=== PATIENT | female | born 1990 | race African-American/Black ===

== ENCOUNTER 2018-10-23 13:32 | Emergency (ER) | payer MEDICAID ==
[~2018-10-23] VITALS: Ht 172.7 cm; Wt 90.7 kg
[2018-10-23 14:08] LABS: BILIRUBIN,URINE SMALL (NEG); CLARITY,URINE CLEAR; COLOR,URINE AMBER; NITRITE,URINE NEGATIVE (NEG); PROTEIN,URINE NEGATIVE (NEG-TRACE)
[2018-10-23 14:13] LABS: BACTERIA,URINE FEW /HPF (0-FEW); RBC,URINE 0 /HPF (0-2); SQUAMOUS EPITHELIAL CELL,UR MANY /LPF; WBC,URINE OCC /HPF (0-4)
--- NOTE | 2018-10-23 14:24 | PHYS DOC ---
Past Medical History Past Surgical History: No Surgical History Alcohol Use: None Drug Use: None Adult General Chief Complaint Chief Complaint: ABDOMINAL PAIN HPI HPI 28-year-old female presents to ER with complaints of GI issues which started yesterday. Patient reports she started having N/V/D episodes yest. with mid abd pain. Patient states symptoms have been waxing and waning. Patient states she is attempted to drink and eat however every time she does she has increased nausea and vomiting episodes. Patient denies fever, chest pain or palpitations, urinary symptoms, or vaginal symptoms. LMP was last week. Pt denies any exposure to others with similar illness. Patient denies any recent travel. Review of Systems Review of Systems Constitutional: Denies fever or chills [] Eyes: Denies change in visual acuity, redness, or eye pain [] HENT: Denies nasal congestion or sore throat [] Respiratory: Denies cough or shortness of breath [] Cardiovascular: No additional information not addressed in HPI [] GI: Denies bloody stools. Reports mid abd pain with N/V/D : Denies dysuria or hematuria. Denies vaginal sxs Musculoskeletal: Denies back pain or joint pain [] Integument: Denies rash or skin lesions [] Neurologic: Denies headache, focal weakness or sensory changes. Denies dizziness Endocrine: Denies polyuria or polydipsia [] All other systems were reviewed and found to be within normal limits, except as documented in this note. Current Medications Current Medications Current Medications Medications (Trade) Dose Ordered Sig/Andrew Start Time Stop Time Status Last Admin Dose Admin Dicyclomine HCl (Bentyl) 20 mg 1X ONCE 10/23/18 15:15 10/23/18 15:16 DC 10/23/18 15:22 20 MG Ondansetron HCl (Zofran) 4 mg 1X ONCE 10/23/18 14:30 10/23/18 14:31 DC 10/23/18 14:36 4 MG Sodium Chloride 1,000 ml @ 1,000 mls/hr 1X ONCE 10/23/18 14:30 10/23/18 15:29 DC 10/23/18 14:30 1,000 MLS/HR Allergies Allergies Allergies Coded Allergies Type Severity Reaction Last Updated Verified No Known Drug Allergies 10/23/18 No Physical Exam Physical Exam Constitutional: Well developed, well nourished, no acute distress, non-toxic appearance. [] HENT: Normocephalic, atraumatic, mucous membranes pink/dry, nose normal. [] Eyes: Pupils equal, conjunctiva normal, no discharge. [] Neck: Normal range of motion, supple, no stridor. [] Cardiovascular: Heart rate regular rhythm, no murmur [] Lungs & Thorax: Bilateral breath sounds clear to auscultation- resp. equal/nonlabored Abdomen: Bowel sounds normal, soft-no distention or rigidity, diffuse tenderness across mid abdomen with no focal area or rebound tenderness, no masses, no pulsatile masses. [] Skin: Warm, dry, no erythema, no rash. [] Back: No tenderness, no CVA tenderness. [] Extremities: No tenderness, no cyanosis, no clubbing, ROM intact, no edema. [] Neurologic: Alert and oriented X 3, normal motor function, normal sensory function, no focal deficits noted. [] Psychologic: Affect normal, judgement normal, mood normal. [] Current Patient Data Vital Signs Vital Signs Date Time Temp Pulse Resp B/P (MAP) Pulse Ox O2 Delivery O2 Flow Rate FiO2 10/23/18 15:00 77 16 118/77 (91) 100 Room Air 10/23/18 13:50 98.4 98.4 Lab Values Laboratory Tests Test 10/23/18 13:40 10/23/18 13:46 10/23/18 14:10 Urine Collection Type Unknown Urine Color [place] Urine Clarity Clear Urine pH 6.0 Urine Specific [place] >=1.030 Urine Protein Negative mg/dL (NEG-TRACE) Urine Glucose (UA) Negative mg/dL (NEG) Urine Ketones (Stick) Trace mg/dL (NEG) Urine Blood Negative (NEG) Urine Nitrite Negative (NEG) Urine Bilirubin Small (NEG) Urine Urobilinogen Dipstick 4.0 mg/dL (0.2 mg/dL) Urine Leukocyte Esterase Trace (NEG) Urine RBC 0 /HPF (0-2) Urine WBC Occ /HPF (0-4) Urine Squamous Epithelial Cells Many /LPF Urine Bacteria Few /HPF (0-FEW) Urine Mucus Mod /LPF POC Urine HCG, Qualitative Hcg negative (Negative) White Blood Count 5.8 x10^3/uL (4.0-11.0) Red Blood Count 4.25 x10^6/uL (3.50-5.40) Hemoglobin 12.9 g/dL (12.0-15.5) Hematocrit 38.9 % (36.0-47.0) Mean Corpuscular Volume 92 fL (79-100) Mean Corpuscular Hemoglobin 30 pg (25-35) Mean Corpuscular Hemoglobin Concent 33 g/dL (31-37) Red Cell Distribution Width 13.7 % (11.5-14.5) Platelet Count 249 x10^3/uL (140-400) Neutrophils (%) (Auto) 32 % (31-73) Lymphocytes (%) (Auto) 54 % (24-48) H Monocytes (%) (Auto) 12 % (0-9) H Eosinophils (%) (Auto) 2 % (0-3) Basophils (%) (Auto) 1 % (0-3) Neutrophils # (Auto) 1.9 x10^3uL (1.8-7.7) Lymphocytes # (Auto) 3.1 x10^3/uL (1.0-4.8) Monocytes # (Auto) 0.7 x10^3/uL (0.0-1.1) Eosinophils # (Auto) 0.1 x10^3/uL (0.0-0.7) Basophils # (Auto) 0.0 x10^3/uL (0.0-0.2) Sodium Level 138 mmol/L (136-145) Potassium Level 3.4 mmol/L (3.5-5.1) L Chloride Level 102 mmol/L (98-107) Carbon Dioxide Level 25 mmol/L (21-32) Anion Gap 11 (6-14) Blood Urea Nitrogen 8 mg/dL (7-20) Creatinine 0.8 mg/dL (0.6-1.0) Estimated GFR (Cockcroft-Gault) 84.8 BUN/Creatinine Ratio 10 (6-20) Glucose Level 96 mg/dL (70-99) Calcium Level 9.1 mg/dL (8.5-10.1) Total Bilirubin 0.3 mg/dL (0.2-1.0) Aspartate Amino Transferase (AST) 20 U/L (15-37) Alanine Aminotransferase (ALT) 28 U/L (14-59) Alkaline Phosphatase 92 U/L (46-116) Total Protein 8.0 g/dL (6.4-8.2) Albumin 3.7 g/dL (3.4-5.0) Albumin/Globulin Ratio 0.9 (1.0-1.7) L Lipase 171 U/L (73-393) Laboratory Tests 10/23/18 14:10 Laboratory Tests 10/23/18 14:10 Microbiology 10/23/18 Urine Culture - Final, Complete 10/23/18 Urine Culture Result 1 (SHAWN) - Final, Complete EKG EKG [] Radiology/Procedures Radiology/Procedures [] Course & Med Decision Making Course & Med Decision Making Pertinent Labs reviewed. (See chart for details) 1505: Pt was evaluated in the ER for GI issues. Patient had labs obtained- results were discussed with pt. CBC unremarkable- K+ 3.4; UA with trace ketones no UTI and neg. UCG. Pt has had no vomiting or diarrhea episodes while in the ER. Patient received IV fluids and Zofran. Patient states she is feeling hungry and so crackers and ice water was provided. Patient will receive IM dicyclomine and be provided with prescriptions for ODT Zofran and dicyclomine with discharge paperwork. At this time patient is in no visible distress. Discussed plans for home discharge with patient follow-up with her primary care physician if symptoms persist or with concerns. Education provided on signs and symptoms to return to ER for and d/c instructions were discussed. Dragon Disclaimer Dragon Disclaimer This electronic medical record was generated, in whole or in part, using a voice recognition dictation system. Departure Departure Impression: Primary Impression: Abdominal pain Additional Impression: Nausea vomiting and diarrhea Disposition: 01 HOME, SELF-CARE Condition: STABLE Patient Instructions: Abdominal Pain (Nonspecific), Diarrhea, Nausea and Vomiting Additional Instructions: Drink plenty of fluids and slowly advance her diet as tolerated. If symptoms persist follow-up with your primary care physician for reevaluation and further care. Scripts Dicyclomine Hcl (DICYCLOMINE HCL) 10 Mg Capsule 1 CAP PO PRN Q6HRS PRN for PAIN, #10 CAP 0 Refills Prov: GRAEME LIMON COST ESTIMATING CLERK 10/23/18 Ondansetron (ONDANSETRON ODT) 4 Mg Tab.rapdis 1 TAB PO PRN Q6-8HRS PRN for NAUSEA, #8 TAB 0 Refills Prov: GRAEME LIMON APRN 10/23/18 Problem Qualifiers GRAEME LIMON APRN October 23, 2018 14:24
[2018-10-23 14:26] LABS: BASO % 1 % (0-3); EOS # 0.1 x10^3/uL (0.0-0.7); EOS % 2 % (0-3); HEMATOCRIT 38.9 % (36.0-47.0); HEMOGLOBIN 12.9 g/dL (12.0-15.5); LYMPH # 3.1 x10^3/uL (1.0-4.8); LYMPH % 54 % (24-48); MEAN CORPUSCULAR HEMOGLOBIN 30 pg (25-35); MEAN CORPUSCULAR HGB CONC 33 g/dL (31-37); MEAN CORPUSCULAR VOLUME 92 fL (79-100); MONO # 0.7 x10^3/uL (0.0-1.1); MONO % 12 % (0-9); NEUT # 1.9 x10^3uL (1.8-7.7); NEUT % 32 % (31-73); PLATELET COUNT 249 x10^3/uL (140-400); RED BLOOD COUNT 4.25 x10^6/uL (3.50-5.40); RED CELL DISTRIBUTION WIDTH 13.7 % (11.5-14.5); WHITE BLOOD COUNT 5.8 x10^3/uL (4.0-11.0)
[2018-10-23] MEDS ORDERED: IV NORMAL SALINE 1000ML BAG 1,000 ML IV ONE (14:30)
[2018-10-23] MEDS ORDERED: ONDANSETRON PF 4 MG/2 ML VIAL. IV ONE (14:30)
[2018-10-23 14:33] LABS: CALCIUM 9.1 mg/dL (8.5-10.1); CREATININE 0.8 mg/dL (0.6-1.0); GFR 84.8; POTASSIUM 3.4 mmol/L (3.5-5.1)
[2018-10-23 14:39] LABS: ALBUMIN 3.7 g/dL (3.4-5.0); ALBUMIN/GLOBULIN RATIO 0.9 (1.0-1.7); TOTAL BILIRUBIN 0.3 mg/dL (0.2-1.0)
[2018-10-23 15:00] VITALS: BP 118/77
[2018-10-23] MEDS ORDERED: DICYCLOMINE 20 MG/2 ML AMPUL. IM ONE (15:15)
[2018-10-23] MEDS ORDERED: DICY10CA3 PO (15:20)
[2018-10-23] MEDS ORDERED: ONDA4TAB12 PO (15:20)
== END 2018-10-23 15:42 | disposition home or self-care (01) ==
LOC: ER 13:32
DX: R11.2 Nausea with vomiting, unspecified (principal); R19.7 Diarrhea, unspecified; R10.84 Generalized abdominal pain
CPT/HCPCS: 36415; 80053; 81001; 81025; 83690; 85025; 87086; 96361; 96372; 96374; 99284; J0500; J2405; J7030

== ENCOUNTER 2020-05-28 15:19 | Emergency (ER) | payer MEDICAID, OTHER ==
[~2020-05-28] VITALS: Ht 157.5 cm; Wt 72.2 kg
[~2020-05-28 15:19] MED LIST: DICY10CA3 PO; ONDA4TAB12 PO
[2020-05-28 16:10] VITALS: BP 117/60
--- NOTE | 2020-05-28 16:14 | PHYS DOC ---
Past Medical History Past Surgical History: No Surgical History Smoking Status: Never Smoker Alcohol Use: None Drug Use: None General Adult EDM: Chief Complaint: SEXUALLY TRANSMITTED DISEASE HPI: HPI: Patient is a 29 year old presents to the emergency room for evaluation of vaginal discomfort, discharge, odor for the past 2 weeks. She reports some pelvic pain. States that she found out 2 weeks ago that her boyfriend was cheating on her with multiple other partners. She states that she feels like her body is trying to fight an infection. She has not had any fevers but has been nauseated after eating for the last couple of days. Review of Systems: Review of Systems: Constitutional: Denies fever or chills. [] Eyes: Denies change in visual acuity. [] HENT: Denies nasal congestion or sore throat. [] Respiratory: Denies cough or shortness of breath. [] Cardiovascular: Denies chest pain or edema. [] GI: Denies abdominal pain, vomiting, bloody stools or diarrhea. [] : reports vag discharge and odor, pelvic pain, vaginal discomfort [] Musculoskeletal: Denies back pain or joint pain. [] Integument: Denies rash. [] Neurologic: Denies headache, focal weakness or sensory changes. [] Endocrine: Denies polyuria or polydipsia. [] Lymphatic: Denies swollen glands. [] Psychiatric: Denies depression or anxiety. [] Heart Score: Risk Factors: Risk Factors: DM, Current or recent (<one month) smoker, HTN, HLP, family history of CAD, obesity. Risk Scores: Score 0 - 3: 2.5% MACE over next 6 weeks - Discharge Home Score 4 - 6: 20.3% MACE over next 6 weeks - Admit for Clinical Observation Score 7 - 10: 72.7% MACE over next 6 weeks - Early Invasive Strategies Allergies: Allergies: Allergies Coded Allergies Type Severity Reaction Last Updated Verified No Known Drug Allergies 10/23/18 No Physical Exam: PE: Constitutional: Well developed, well nourished, no acute distress, non-toxic appearance. [] HENT: Normocephalic, atraumatic, bilateral external ears normal, oropharynx moist, no oral exudates, nose normal. [] Eyes: PERRLA, EOMI, conjunctiva normal, no discharge. [] Cardiovascular:Heart rate regular rhythm, no murmur [] Lungs & Thorax: Bilateral breath sounds clear to auscultation [] Abdomen: Bowel sounds normal, soft, no tenderness, no masses, no pulsatile masses. [] : WHITE DISCHARGE, NO LESIONS, NO ADNEXAL TTP Skin: Warm, dry, no erythema, no rash. [] Extremities: No tenderness, no cyanosis, no clubbing, ROM intact, no edema. [] Neurologic: Alert and oriented X 3, normal motor function, normal sensory function, no focal deficits noted. [] Psychologic: Affect normal, judgement normal, mood normal. [] Current Patient Data: Labs: Laboratory Tests Test 05/28/20 16:10 Urine Collection Type Unknown Urine Color Yellow Urine Clarity Clear Urine pH 6.5 Urine Specific [place] 1.025 Urine Protein Negative mg/dL Urine Glucose (UA) Negative mg/dL Urine Ketones (Stick) Negative mg/dL Urine Blood Negative Urine Nitrite Negative Urine Bilirubin Negative Urine Urobilinogen Dipstick 1.0 mg/dL Urine Leukocyte Esterase Negative Urine RBC 0 /HPF Urine WBC Occ /HPF Urine Squamous Epithelial Cells Many /LPF Urine Bacteria Few /HPF Urine Mucus Slight /LPF Bedside Urine HCG, Qualitative Hcg negative Current Medications Medications (Trade) Dose Ordered Sig/Andrew Route PRN Reason Start Time Stop Time Status Last Admin Dose Admin Azithromycin (Zithromax) 1,000 mg 1X ONCE PO 05/28/20 17:15 05/28/20 17:16 DC Ceftriaxone Sodium (Rocephin Im) 250 mg 1X ONCE IM 05/28/20 17:15 05/28/20 17:16 DC Vital Signs: Vital Signs Date Time Temp Pulse Resp B/P (MAP) Pulse Ox O2 Delivery O2 Flow Rate FiO2 05/28/20 15:44 97.8 82 16 117/60 (79) 100 Room Air 97.8 EKG: EKG: [] Radiology/Procedures: Radiology/Procedures: [] Course & Med Decision Making: Course & Med Decision Making Pertinent Labs and Imaging studies reviewed. (See chart for details) [Wet mount indicates bacterial vaginosis, but given patient provided prescription for metronidazole. She is treated prophylactically for gonorrhea and chlamydia as these cultures will not be back prior to discharge. She will follow up with primary care provider in 2 to 3 days, return to ER for new or worsening symptoms.] Lucila Disclaimer: Dragsammi Disclaimer: This electronic medical record was generated, in whole or in part, using a voice recognition dictation system. Departure Departure Impression: Primary Impression: Bacterial vaginosis Disposition: 01 DC HOME SELF CARE/HOMELESS Referrals: NO PCP (PCP) Patient Instructions: Bacterial Vaginosis Scripts Fluconazole (DIFLUCAN) 150 Mg Tablet 1 TAB PO ONCE, #1 TAB 1 Refill Prov: EMMA ELAINE APRN 05/28/20 Metronidazole (METRONIDAZOLE) 500 Mg Tablet 1 TAB PO BID for 7 Days, #14 TAB 0 Refills Prov: EMMA ELAINE APRN 05/28/20 EMMA ELAINE APRN May 28, 2020 16:14
[2020-05-28 16:28] LABS: BILIRUBIN,URINE NEGATIVE (NEG); CLARITY,URINE CLEAR; COLOR,URINE YELLOW; NITRITE,URINE NEGATIVE (NEG); PH,URINE 6.5 (<5.0-8.0); PROTEIN,URINE NEGATIVE (NEG-TRACE)
[2020-05-28 16:55] LABS: BACTERIA,URINE FEW /HPF (0-FEW); RBC,URINE 0 /HPF (0-2); WBC,URINE OCC /HPF (0-4)
[2020-05-28] MEDS ORDERED: AZITHROMYCIN 250 MG TABLET. PO ONE (17:15)
[2020-05-28] MEDS ORDERED: cefTRIAXone IM 250 MG VIAL IM ONE (17:15)
[2020-05-28] MEDS ORDERED: METR-34 PO (17:38)
[2020-05-28] MEDS ORDERED: FLUC150T PO (17:38)
[2020-05-29 19:11] LABS: GC PROBE Negative (Negative)
== END 2020-05-28 18:20 | disposition home or self-care (01) ==
LOC: ER 15:19
DX: N76.0 Acute vaginitis (principal); B96.89 Other specified bacterial agents as the cause of diseases classified elsewhere
CPT/HCPCS: 81001; 81025; 87491; 87591; 96372; 99283; J0696; Q0111

== ENCOUNTER 2021-08-06 15:45 | Emergency (ER) | payer SELFPAY ==
[~2021-08-06] VITALS: Ht 172.7 cm; Wt 90.0 kg
[~2021-08-06 15:45] MED LIST changes: +FLUC150T PO; +METR-34 PO
[2021-08-06 16:37] LABS: BILIRUBIN,URINE NEGATIVE (NEG); CLARITY,URINE CLEAR; COLOR,URINE YELLOW; NITRITE,URINE NEGATIVE (NEG); PROTEIN,URINE NEGATIVE (NEG-TRACE)
[2021-08-06 16:49] LABS: BACTERIA,URINE FEW /HPF (0-FEW); RBC,URINE 0 /HPF (0-2)
--- NOTE | 2021-08-06 17:27 | PHYS DOC ---
Past Medical History Past Medical History: Other Additional Past Medical Histor: HERPES Past Surgical History: No Surgical History Smoking Status: Never Smoker Alcohol Use: None Drug Use: None General Adult EDM: Chief Complaint: SEXUALLY TRANSMITTED DISEASE HPI: HPI: Patient is a 31 year old female who presents with concerns about sexually transmitted infections. States that she is in a relationship with her boyfriend and is sexually active, does not use barrier protection. Her boyfriend admitted to cheating on her with his ex girlfriend at the end of last year. States that the ex-girlfriend has contacted him stating that she has chlamydia and HIV. The boyfriend has not gotten tested. She has not had any symptoms including vaginal bleeding, vaginal discharge, ulcers/sores, fever/chills, sore throat, myalgias, night sweats, abdominal pain, dysuria etc. States her LMP is 1/7, so her menstrual period is late currently. Review of Systems: Review of Systems: Constitutional: Denies fever or chills. [] Eyes: Denies change in visual acuity. [] HENT: Denies nasal congestion or sore throat. [] Respiratory: Denies cough or shortness of breath. [] Cardiovascular: Denies chest pain or edema. [] GI: Denies abdominal pain, nausea, vomiting, bloody stools or diarrhea. [] : Denies dysuria. Reports urinary frequency. Reports late menstrual period. [] Musculoskeletal: Denies back pain or joint pain. [] Integument: Denies rash. [] Neurologic: Denies headache, focal weakness or sensory changes. [] Psychiatric: Denies depression or anxiety. [] Heart Score: C/O Chest Pain: No Allergies: Allergies: Allergies Coded Allergies Type Severity Reaction Last Updated Verified No Known Drug Allergies 08/06/21 No Physical Exam: PE: Constitutional: Well developed, well nourished, no acute distress, non-toxic appearance. [] HENT: Normocephalic, atraumatic Neck: Normal range of motion, no tenderness, supple, no stridor. [] Cardiovascular:Heart rate regular rhythm, no murmur [] Lungs & Thorax: Bilateral breath sounds clear to auscultation [] Abdomen: Bowel sounds normal, soft, no tenderness, no masses, no pulsatile masses. [] Skin: Warm, dry, no erythema, no rash. [] Back: No tenderness, no CVA tenderness. [] Extremities: No tenderness, no cyanosis, no clubbing, ROM intact, no edema. [] Neurologic: Alert and oriented X 3, normal motor function, normal sensory function, no focal deficits noted. [] Psychologic: Affect normal, judgement normal, mood normal. [] Current Patient Data: Labs: Laboratory Tests Test 08/06/21 15:51 08/06/21 16:01 Urine Collection Type Unknown Urine Color Yellow Urine Clarity Clear Urine pH 7.0 (<5.0-8.0) Urine Specific [place] 1.025 (1.000-1.030) Urine Protein Negative mg/dL (NEG-TRACE) Urine Glucose (UA) Negative mg/dL (NEG) Urine Ketones (Stick) Negative mg/dL (NEG) Urine Blood Negative (NEG) Urine Nitrite Negative (NEG) Urine Bilirubin Negative (NEG) Urine Urobilinogen Dipstick 1.0 mg/dL (0.2 mg/dL) Urine Leukocyte Esterase Negative (NEG) Urine RBC 0 /HPF (0-2) Urine WBC 1-4 /HPF (0-4) Urine Squamous Epithelial Cells Mod /LPF Urine Bacteria Few /HPF (0-FEW) Urine Mucus Mod /LPF POC Urine HCG, Qualitative Hcg positive (Negative) Vital Signs: Vital Signs Date Time Temp Pulse Resp B/P (MAP) Pulse Ox O2 Delivery O2 Flow Rate FiO2 08/06/21 15:45 98.2 97 14 155/68 (97) 100 98.2 EKG: EKG: [] Radiology/Procedures: Radiology/Procedures: [id number] abdominal ultrasound: -No pelvic free fluid -No IUP identified Course & Med Decision Making: Course & Med Decision Making Pertinent Labs and Imaging studies reviewed. (See chart for details) Patient a 31-year-old female who presents requesting testing for sexually transmitted infections. She denies any symptoms. She is currently late for her menstrual period. test is positive. 5 weeks, 4 days gestational age by LMP. [id number] ultrasound did not reveal IUP, but at this stage of , I would not expect to visualize on transabdominal ultrasound. I have asked her to follow-up with OB. She has had no vaginal bleeding, cramping, discharge, or loss of fluid to suggest further OB work up at this time. Will defer formal US to the outpatient setting. Regarding STI testing Wet prep shows evidence of bacterial vaginosis. No trichomoniasis. Will send for 500 mg metronidazole twice daily for 7 days. GC/chlamydia sent. Will not treat empirically given lack of symptoms and no known direct contact. UA not infected. She is requesting HIV testing which I feel is indicated. Discussed our lack of an HIV testing follow-up mechanism, and have directed her to seek testing with the [facility]. Provided with contact info. Syphillis and hepatitis testing is pending at the time of signout to Dr. Perez. [phone] Dragon Disclaimer: Dragon Disclaimer: This electronic medical record was generated, in whole or in part, using a voice recognition dictation system. Departure Departure Impression: Primary Impression: Screening for STD (sexually transmitted disease) Disposition: HOME / SELF CARE / HOMELESS Condition: STABLE Referrals: ROBERT DINH MD Schedule an appointment with our OB for follow-up. Otherwise if you have a different OB that you prefer to use you can follow-up with them. Patient Instructions: ABCs of , Bacterial Vaginosis Additional Instructions: You are . Based on your last menstrual period of 06/28/2021 you're approximately 5 weeks and 4 days . This would put your due date tentatively at April [id number]. It is important that you follow-up with an HOUSEKEEPING MANAGER specialist. You can contact Dr. Dinh, our on-call OB doctor, or you can go to any OB of your choosing. Your test did show evidence of bacterial vaginosis, this is not a sexually transmitted infection, but does require antibiotics for treatment. Please take metronidazole 500 mg twice daily for 7 days. Your gonorrhea and chlamydia tests will take a few days to come back. You will receive a call if they are positive and directed to come back for treatment. For HIV testing call [facility]. They do not take walk ins. Call [phone] to schedule an appointment. These nurses are specially trained in sexually transmitted infection diagnosis and treatment. There is a fee for STI screenings for gonorrhea, chlamydia, HIV, and syphillis. Call for the current fees: Additional charges may apply for other tests. The [facility] accepts flores, check, credit or debit cards, and accepts most insurance for payment. Services Provided: Examinations, diagnosis, and treatment of sexually transmitted infections (STI's) Treatment of clients who are partners of people who have STI's Vaginitis testing and treatment HIV counseling, testing, and referral Pre-Exposure Prophylaxis (PrEP) Clinic for the prevention of HIV. Just $45 to get started Address: [facility] Department [address] [place] [address], [id number] Hours Thursday Closed Thursday 08:30 AM05:00 PM Thursday 08:30 AM05:00 PM Thursday 08:30 AM05:00 PM 08:30 AM05:00 PM Thursday 08:30 AM05:00 PM Thursday Closed Scripts Metronidazole (METRONIDAZOLE) 500 Mg Tablet 1 TAB PO BID for 7 Days, #14 TAB 0 Refills Prov: MARY ANN FOSTER MD 08/06/21 MARY ANN FOSTER MD Aug 06, 2021 17:27
[2021-08-06] MEDS ORDERED: METR-34 PO (17:40)
[2021-08-06 18:49] VITALS: BP 129/69
== END 2021-08-06 18:47 | disposition home or self-care (01) ==
LOC: ER 15:45
DX: Z20.2 Contact with and (suspected) exposure to infections with a predominantly sexual mode of transmission (principal)
CPT/HCPCS: 81001; 81025; 86592; 86705; 86709; 86803; 87340; 87491; 87591; 99284; Q0111; 99283